=== PATIENT | male | born 1985 | race Caucasian/White ===

== ENCOUNTER 2017-06-03 06:47 | Emergency (ER) | payer MEDICAID ==
[~2017-06-03] VITALS: Ht 180.3 cm; Wt 118.2 kg
[2017-06-03] MEDS ORDERED: MECLIZINE HCL 25 MG TABLET PO ONE (08:30)
[2017-06-03] MEDS ORDERED: SODIUM CHLORIDE 0.9% 1,000 ML IV ONE (09:00)
[2017-06-03 10:04] VITALS: BP 148/90
== END 2017-06-03 10:34 | disposition home or self-care (01) ==
LOC: EMS 06:49
DX: R42 Dizziness and giddiness (principal); R11.2 Nausea with vomiting, unspecified; I10 Essential (primary) hypertension
CPT/HCPCS: 96360; 99284; J7030